=== PATIENT | female | born 1990 | race Two or more races ===

== ENCOUNTER 2016-09-14 12:11 | Emergency (ER) | payer OTHER ==
[2016-09-14 12:40] VITALS: BP 111/68; PULSE 79; TEMP 98.9; BMI 30.1
--- NOTE | 2016-09-14 12:54 | PDOC ---
History of Present Illness - General Chief Complaint: Cold Symptoms Stated Complaint: SOB (ASTHMA) Time Seen by Provider: 09/14/16 12:42 History Source: Patient Past History - Past Medical History Allergies/Adverse Reactions: Allergies Allergy/AdvReac Type Severity Reaction Status Date / Time No Known Allergies Allergy Verified 09/14/16 12:36 Home Medications: Ambulatory Orders Albuterol Sulfate Inhaler - [Ventolin HFA Inhaler -] 1 - 2 inh PO Q4H #1 inhaler 09/14/16 Asthma: Yes - Immunization History Immunization Up to Date: Yes (NO FLU) - Psycho/Social/Smoking Cessation Hx Anxiety: No Suicidal Ideation: No Smoking History: Never smoked Have you smoked in the past 12 months: No Information on smoking cessation initiated: No Hx Alcohol Use: No Drug/Substance Use Hx: No Substance Use Type: None *Physical Exam - Vital Signs Last Vital Signs Temp Pulse Resp BP Pulse Ox 98.9 F 79 20 111/68 99 09/14/16 12:36 09/14/16 12:36 09/14/16 12:36 09/14/16 12:36 09/14/16 12:36 Medical Decision Making - Medical Decision Making 09/14/16 12:53 26-year-old female history of mild intermittent asthma, no admissions and no intubations, presents with body aches with fever and chills since yesterday. States highest temp was 102 and has been taking tylenol. No sore throat, ear pain, vomiting, diarrhea or rash. States daughter with similar symptoms at home. Pt well tanya w/ unremarkable exam. M/l viral, r/o influenza. 09/14/16 13:32 Influenza neg. Dc w/ supportive tx *DC/Admit/Observation/Transfer Diagnosis at time of Disposition: Viral syndrome - Discharge Dispostion Disposition: HOME Condition at time of disposition: Good - Prescriptions Prescriptions: Albuterol Sulfate Inhaler - [Ventolin HFA Inhaler -] 1 - 2 inh PO Q4H #1 inhaler - Patient Instructions Printed Discharge Instructions: DI for Viral Syndrome
== END 2016-09-14 13:36 | disposition home or self-care (01) ==
LOC: JER 12:11 → JERFT 12:11
DX: B34.9 Viral infection, unspecified (principal)
CPT/HCPCS: 87804; 99281-25